=== PATIENT | female | born 1960 | race Caucasian/White ===

== ENCOUNTER 2022-06-07 10:18 | Outpatient (CLI) | payer MEDICAID, SELFPAY ==
[2022-06-07 11:49] LABS: Cholesterol* 262 mg/dL (90-199); Glucose* 84 mg/dL (60-115)
[2022-06-07 11:50] LABS: HDL Cholesterol* 103 mg/dL (>=50); LDL Cholesterol Calculated 148 mg/dL (<100); Triglycerides* 55 mg/dL (40-149)
== END 2022-06-07 10:19 | disposition home or self-care (01) ==
LOC: NFLDREF 10:18
PROVIDERS: PCP Family Medicine; Visit Provider Family Medicine
DX: Z00.00 Encounter for general adult medical examination without abnormal findings (principal); Z13.1 Encounter for screening for diabetes mellitus; Z13.6 Encounter for screening for cardiovascular disorders
CPT/HCPCS: 80061; 82947

== ENCOUNTER 2023-01-02 13:52 | Outpatient (CLI) | payer OTHER, SELFPAY ==
--- NOTE | 2023-01-02 14:00 | CRLHL7_ITS ---
For Patients: As a result of the Century Cures Act, medical imaging exams and procedure reports are released immediately into your electronic medical record. You may view this report before your referring provider. If you have questions, please contact your health care provider. BILATERAL SCREENING MAMMOGRAM WITH COMPUTER-AIDED DETECTION AND TOMOSYNTHESIS TECHNIQUE: CC and MLO views were obtained. These mammographic images have been obtained using full-field digital technique. These mammographic images were interpreted with the benefit of computer-aided detection. Breast Tomosynthesis was used in this interpretation. COMPARISON FILM: 05/31/21, 05/22/20, 04/05/19. FINDINGS: The breasts are extremely dense, which lowers the sensitivity of mammography IMPRESSION: There is no radiographic evidence for malignancy. ASSESSMENT: BI-RADS Category 1: Negative RECOMMENDATION: Routine screening mammogram in 1 year. A lay language report of this examination will be provided to the patient. Stuart Espinoza M.D. Diagnostic Radiologist [email or web address] ANA/Dictated by: Stuart Espinoza MD @ 01/03/2023 1:22:00 PM (Electronically Signed)
== END 2023-01-02 13:53 | disposition home or self-care (01) ==
LOC: MAMMO 13:53
PROVIDERS: PCP Family Medicine; Visit Provider Obstetrics & Gynecology
DX: Z12.31 Encounter for screening mammogram for malignant neoplasm of breast (principal); R92.2 Inconclusive mammogram
CPT/HCPCS: 77063; 77067

== ENCOUNTER 2023-01-20 09:00 | Outpatient (RCR) | payer OTHER, SELFPAY ==
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
== END 2023-01-20 09:35 | disposition home or self-care (01) ==
PROVIDERS: PCP Family Medicine; Visit Provider Physician Assistant
DX: S63.6 Other and unspecified sprain of finger(s) (principal); Z51.89 Encounter for other specified aftercare
CPT/HCPCS: 97110; 97140; 97161; 97166; 97535; X5282

== ENCOUNTER 2023-07-07 17:54 | Outpatient (CLI) | payer OTHER, SELFPAY | END 2023-07-07 17:55 | disposition home or self-care (01) | LOC: NFLDREF 17:55 | PROVIDERS: PCP Family Medicine; Visit Provider Obstetrics & Gynecology | DX: A60.1 Herpesviral infection of perianal skin and rectum (principal) | CPT/HCPCS: 87529 ==

== ENCOUNTER 2023-08-13 11:19 | Outpatient (CLI) | payer OTHER, SELFPAY ==
--- NOTE | 2023-08-13 11:30 | XR_ITS ---
Patient: DELANEY PALMA Facility:?[facility] Patient ID:?[id number] Site Patient ID:?[id number]. Site :?[id number] Study:?DEXA-Bone Density-08/13/2023 12:03:37 PM Ordering Physician:MARIO ALBERTO Final Report: DXA BONE MINERAL DENSITY STUDY Reason for exam: Osteopenia. Current height (in): 64.0. Weight (lb): 112.0. Menopause age: 49. Ethnicity: White. 1. Have you had a previous hip or vertebral fracture? No. 2. Have you had any fractures during your adult life which did not result from significant trauma (e.g., auto accident)? No. 3. Did either of your parents have a hip fracture? No. 4. Do you smoke? No. 5. Have you ever taken Glucocorticoids? No. 6. Do you have rheumatoid arthritis? No. 7. Do you have secondary osteoporosis? No. 8. Do you drink 3 or more alcoholic drinks per day? No. 9. Are you being treated for osteoporosis? No. 10. Have you ever taken any of the following medications: Actonel, Evista, Fosamax, Miacalcin, Reclast, Boniva, Forteo, HRT (i.e. estrogen/hormone therapy), Protelos, Prolia, Vitamin D, Calcium, other ? please specify. ANSWER: Yes, Fosamax, vitamin D, magnesium, calcium. 11. Do you have any of the following medical conditions: Anorexia or bulimia, asthma or emphysema, end stage renal disease, hyperparathyroidism, any seizure disorders, cancer, inflammatory bowel diseases, hysterectomy, other ? please specify. ANSWER: No. 12. What was your maximum height (inches)? 64. 13. Do you perform weight bearing exercise regularly? Yes. 14. Do you regularly consume dairy products? Yes. 15. Do you drink caffeinated beverages? Yes. 16. At what age did your period start? 12. 17. Are you premenopausal? No. 18. How many full term pregnancies have you had? 3. 19. Have you ever missed your period for more than 6 months in a row (not including or menopause)? No. TECHNIQUE: Bone mineral density study was performed using the [facility]. FINDINGS: The results of the study expressed as bone mineral density (BMD) are as follows: Lumbar spine L1 to L4: BMD: 0.805 g/cm2. T-score: -2.2. Z-score: -0.5. Neck Left: BMD: 0.663 g/cm2. T-score: -1.7. Z-score: -0.2. Right: BMD: 0.671 g/cm2. T-score: -1.6. Z-score: -0.1. Total Left: BMD: 0.802 g/cm2. T-score: -1.2. Z-score: 0.0. Right: BMD: 0.799 g/cm2. T-score: -1.2. Z-score: 0.0. IMPRESSION: Osteopenia. *Comparison exams done prior to 09/2019 were performed on different unit, [email or web address]. COMPARISON: Compared with scan of 06/21/2021, the bone mineral density has increased by 1.3 percent at the spine and increased by 0.8 percent at the hip. Compared with scan of 04/05/2019, the bone mineral density has decreased by 7.7 percent at the spine amd decreased by 1.8 percent at the hip. FRAX 10-year Fracture Risk Major Osteoporotic Fracture: 7.8 percent Hip Fracture: 1.0 percent Reported Risk Factors: [place] () Neck BMD=0.663, BMI=19.2 Stuart Espinoza M.D. Diagnostic Radiologist [email or web address] LEONARDO/lizz / be/Dictated by: Stuart Espinoza MD @ 08/14/2023 8:19:00 AM Signed by:?Stuart Espinoza MD @08/15/2023 11:26:39 AM (Electronic Signature)
== END 2023-08-13 11:20 | disposition home or self-care (01) ==
LOC: RAD 11:20
PROVIDERS: PCP Family Medicine; Visit Provider Family Medicine
DX: M85.80 Other specified disorders of bone density and structure, unspecified site (principal); M85.88 Other specified disorders of bone density and structure, other site
CPT/HCPCS: 77080

== ENCOUNTER 2024-07-01 15:21 | Outpatient (CLI) | payer MEDICARE, OTHER, SELFPAY ==
--- NOTE | 2024-07-01 15:30 | CRLHL7_ITS ---
For Patients: As a result of the Century Cures Act, medical imaging exams and procedure reports are released immediately into your electronic medical record. You may view this report before your referring provider. If you have questions, please contact your health care provider. INDICATION: Neck pain. COMPARISON: None. TECHNIQUE: Sagittal T1, T2, and STIR sequences. Axial T2/gradient sequences. Findings : Normal vertebral body and facet alignment. No fractures. No vertebral body loss of height. No spondylolisthesis. No ligamentous injury. Normal marrow signal. No suspicious osseous lesions. Vertebral body hemangioma C7. Normal cord signal. No intradural mass or lesion. C1-2: No spinal canal narrowing. C2-3: No spinal canal or neural foraminal narrowing. C3-4: No spinal canal or neural foraminal narrowing. C4-5: No spinal canal or neural foraminal narrowing. C5-6: Disc degeneration and posterior disc bulge. No narrowing of spinal canal. Uncovertebral joint hypertrophy results in mild narrowing of bilateral foramina. C6-7: Disc degeneration and posterior disc bulge. No spinal canal or neural foraminal narrowing. C7-T1: No spinal canal or neural foraminal narrowing. No spinal canal or neural foraminal narrowing in the visualized upper thoracic spine. IMPRESSION: 1. Normal alignment. No fractures. 2. Normal cord signal. 3. At C5-6, mild narrowing of the bilateral neural foramina 4. No spinal canal or neural foraminal narrowing. Dictated by Nishant Huang MD @ 07/02/2024 3:42:44 PM (Electronically Signed)
== END 2024-07-01 15:22 | disposition home or self-care (01) ==
PROVIDERS: PCP Family Medicine; Visit Provider Family Medicine
DX: M54.2 Cervicalgia (principal); M50.222 Other cervical disc displacement at C5-C6 level
CPT/HCPCS: 72141

== ENCOUNTER 2024-08-27 09:25 | Outpatient (CLI) | payer MEDICARE, OTHER, SELFPAY | END 2024-08-27 09:26 | disposition home or self-care (01) | LOC: NFLDREF 08-28 07:01 | PROVIDERS: PCP Family Medicine; Referring Provider Family Medicine; Visit Provider Family Medicine | DX: E78.5 Hyperlipidemia, unspecified (principal); I10 Essential (primary) hypertension | CPT/HCPCS: 80053; 80061 ==

== ENCOUNTER 2024-09-10 08:15 | Outpatient (CLI) | payer MEDICARE, OTHER, SELFPAY ==
[2024-09-11 17:39] LABS: Gliadin Peptide Ab, IgA <0.72 FLU (0.00-4.99); Tissue Transglutaminase Ab IgA <1.02 FLU (0.00-4.99)
[2024-09-12 05:19] LABS: Immunoglobulin A 179 mg/dL (68-408)
== END 2024-09-10 08:16 | disposition home or self-care (01) ==
LOC: NPINS 08:17
PROVIDERS: PCP Family Medicine
DX: L64.9 Androgenic alopecia, unspecified (principal); R07.0 Pain in throat; R09.A2 Foreign body sensation, throat; J38.3 Other diseases of vocal cords; R68.81 Early satiety; R19.4 Change in bowel habit; Z13.29 Encounter for screening for other suspected endocrine disorder; I10 Essential (primary) hypertension; N95.2 Postmenopausal atrophic vaginitis; M85.80 Other specified disorders of bone density and structure, unspecified site
CPT/HCPCS: 82784; 84443; 86231; 86258; 86364

== ENCOUNTER 2024-09-24 10:15 | Outpatient (RCR) | payer MEDICARE, OTHER, SELFPAY | END 2024-09-24 11:13 | disposition home or self-care (01) | PROVIDERS: PCP Family Medicine; Visit Provider Family Medicine | DX: M54.2 Cervicalgia (principal); G89.29 Other chronic pain; M54.50 Low back pain, unspecified; Z51.89 Encounter for other specified aftercare; E78.5 Hyperlipidemia, unspecified | CPT/HCPCS: 97110; 97140; 97162 ==

== ENCOUNTER 2024-12-03 12:49 | Outpatient (CLI) | payer MEDICARE, SELFPAY ==
--- NOTE | 2024-12-03 13:00 | CRLHL7_ITS ---
For Patients: As a result of the Century Cures Act, medical imaging exams and procedure reports are released immediately into your electronic medical record. You may view this report before your referring provider. If you have questions, please contact your health care provider. INDICATION: Pharyngeal mass. COMPARISON: MRI 07/01/2024. TECHNIQUE: CT soft tissue neck with IV contrast. Isovue 370, 54 cc IV. FINDINGS: Normal bilateral parotid and submandibular glands. Normal thyroid gland. No enlarged cervical lymph nodes bilaterally. No supraclavicular or superior mediastinal adenopathy. Nasopharynx and oropharynx are clear. No inflammation within the paravertebral fat pads or retropharyngeal space. Calcified tonsilliths on the left. Normal thickness of the epiglottis. Normal glottis with symmetric vocal cords. No focal mass or asymmetry in the pharynx or hypopharynx. Lung apices are clear. Normal alignment of the cervical spine. No prevertebral soft tissue swelling. Visualized paranasal sinuses and mastoid air cells are clear. IMPRESSION: 1. No adenopathy 2. No mass or asymmetry in the pharynx or hypopharynx. 3. Normal deep soft tissues of the neck. Please note that all CT scans at this facility use dose modulation, iterative reconstruction, and/or weight-based dosing when appropriate to reduce radiation dose to as low as reasonably achievable. Dictated by Nishant Huang MD @ 12/04/2024 8:04:38 AM (Electronically Signed)
[2024-12-03 13:17] LABS: Creatinine* 0.8 mg/dL (0.5-1.5); Estimated Glomerular Filt Rate 82 ml/min
== END 2024-12-03 12:50 | disposition home or self-care (01) ==
LOC: CT 12:49
PROVIDERS: PCP Family Medicine; Visit Provider Otolaryngology
DX: J39.2 Other diseases of pharynx (principal)
CPT/HCPCS: 36415; 70491; 82565; Q9967

== ENCOUNTER 2024-12-16 08:54 | Outpatient (CLI) | payer MEDICARE, SELFPAY ==
--- NOTE | 2024-12-16 09:15 | CRLHL7_ITS ---
For Patients: As a result of the Century Cures Act, medical imaging exams and procedure reports are released immediately into your electronic medical record. You may view this report before your referring provider. If you have questions, please contact your health care provider. INDICATION: BILATERAL SCREENING MAMMOGRAM, ASYMPTOMATIC 64 Y/O FEMALE COMPARISON: 01/02/2023, 05/31/2021, 05/22/2020 TECHNIQUE: Digital mammogram in CC and MLO projections including computer-aided detection (CAD) and tomosynthesis. BREAST COMPOSITION: The breasts are extremely dense, which lowers the sensitivity of mammography. FINDINGS: No suspicious findings. ASSESSMENT: BI-RADS 1 Negative RECOMMENDATION: Annual screening mammogram. A lay language report of this examination will be provided to the patient. Dictated by: Stuart Espinoza MD @ 12/16/2024 10:19:43 (Electronically Signed)
== END 2024-12-16 08:55 | disposition home or self-care (01) ==
LOC: MAMMO 08:55
PROVIDERS: PCP Family Medicine; Visit Provider Obstetrics & Gynecology
DX: Z12.31 Encounter for screening mammogram for malignant neoplasm of breast (principal); R92.343 Mammographic extreme density, bilateral breasts
CPT/HCPCS: 77063; 77067

== ENCOUNTER 2024-12-23 08:06 | Outpatient (CLI) | payer MEDICARE, SELFPAY ==
--- NOTE | 2024-12-23 08:15 | CRLHL7_ITS ---
For Patients: As a result of the Century Cures Act, medical imaging exams and procedure reports are released immediately into your electronic medical record. You may view this report before your referring provider. If you have questions, please contact your health care provider. Technique: Double-contrast esophagram performed after the uneventful administration of effervescent crystals and thick barium followed by thin barium. Fluoroscopy time 1 minute 7 seconds. Indication: Vocal cord swelling Comparison: EGD August 2024 Findings: Esophagus: Normal morphology. Decreased motility. No stricture or mass. Small sliding hernia. Gastroesophageal reflux: None. Impression: Small sliding hernia with decreased motility. No reflux observed. Dictated by Stuart Espinoza MD @ 12/23/2024 10:52:35 AM (Electronically Signed)
== END 2024-12-23 08:07 | disposition home or self-care (01) ==
LOC: RAD 08:07
PROVIDERS: PCP Family Medicine; Visit Provider Otolaryngology
DX: R13.10 Dysphagia, unspecified (principal); K40.90 Unilateral inguinal hernia, without obstruction or gangrene, not specified as recurrent
CPT/HCPCS: 74221

== ENCOUNTER 2025-03-03 07:08 | Outpatient (CLI) | payer MEDICARE, SELFPAY ==
--- NOTE | 2025-03-03 08:42 | P.ANES_ITS ---
Anesthesia Charges Start Date/Time Anesthesia Start Date: 03/03/25 Anesthesia Start Time: 08:01 Stop Date/Time Anesthesia Stop Date: 03/03/25 Anesthesia Stop Time: 08:37 Coding CPT Codes CPT Codes: TIMI LWR INTST NDSC NOS - 82071 ([id number]) P2 - PATIENT W/MILD SYST DISEASE, QK - FINANCIAL RESERVE CLERK 2-4 CNCRNT ANES PROC
--- NOTE | 2025-03-03 08:42 | W.ANESCHARGE ---
Anesthesia Charges Start Date/Time Anesthesia Start Date: 03/03/25 Anesthesia Start Time: 08:01 Stop Date/Time Anesthesia Stop Date: 03/03/25 Anesthesia Stop Time: 08:37 Coding CPT Codes CPT Codes: TIMI LWR INTST NDSC NOS - 56040 ([id number]) P2 - PATIENT W/MILD SYST DISEASE, QK - SOLID WASTE MANAGEMENT ENGINEER 2-4 CNCRNT ANES PROC
--- NOTE | 2025-03-03 09:25 | P.ANES_ITS ---
Anesthesia Charges Start Date/Time Anesthesia Start Date: 03/03/25 Anesthesia Start Time: 08:01 Stop Date/Time Anesthesia Stop Date: 03/03/25 Anesthesia Stop Time: 08:37 Coding CPT Codes CPT Codes: TIMI LWR INTST NDSC NOS - 31508 ([id number]) P2 - PATIENT W/MILD SYST DISEASE, QK - CVIR TECH 2-4 CNCRNT ANES PROC, QX - WAREHOUSE SUPERVISOR SVC W/ MD MED DIRECTION
--- NOTE | 2025-03-03 09:25 | W.ANESCHARGE ---
Anesthesia Charges Start Date/Time Anesthesia Start Date: 03/03/25 Anesthesia Start Time: 08:01 Stop Date/Time Anesthesia Stop Date: 03/03/25 Anesthesia Stop Time: 08:37 Coding CPT Codes CPT Codes: TIMI LWR INTST NDSC NOS - 78228 ([id number]) P2 - PATIENT W/MILD SYST DISEASE, QK - CABIN CLEANER 2-4 CNCRNT ANES PROC, QX - FACILITIES ASSISTANT SVC W/ MD MED DIRECTION
== END 2025-03-03 07:09 | disposition home or self-care (01) ==
LOC: OP CLINIC 07:10
PROVIDERS: PCP Family Medicine; Visit Provider Surgery
DX: Z12.11 Encounter for screening for malignant neoplasm of colon (principal); D12.7 Benign neoplasm of rectosigmoid junction; K55.20 Angiodysplasia of colon without hemorrhage; Z86.0100 Personal history of colon polyps, unspecified
CPT/HCPCS: 00811; 00812; 45380; 45385; J2704